=== PATIENT | male | born 1930 | race Caucasian/White ===

== ENCOUNTER 2016-12-13 05:54 | Emergency (ER) | payer MEDICARE, BC ==
[~2016-12-13] VITALS: Ht 175.3 cm; Wt 77.3 kg
[~2016-12-13 05:54] MED LIST: NO HOME MEDICATIONS
[2016-12-13 05:55] VITALS: BP 167/66; PULSE 60; TEMP 98.1
== END 2016-12-13 06:53 | disposition short-term general hospital (02) ==
LOC: COL.ER 05:54
DX: R33.9 Retention of urine, unspecified (principal); K21.9 Gastro-esophageal reflux disease without esophagitis; E11.9 Type 2 diabetes mellitus without complications; F03.90 Unspecified dementia, unspecified severity, without behavioral disturbance, psychotic disturbance, mood disturbance, and anxiety; Z90.49 Acquired absence of other specified parts of digestive tract; Z85.51 Personal history of malignant neoplasm of bladder